=== PATIENT | female | born 1940 | race Caucasian/White ===

== ENCOUNTER 2017-06-01 14:11 | Inpatient (IN) | payer MEDICARE ==
[2017-06-01] MEDS ORDERED: Ondansetron ODT 4 MG TAB SL PRN (17:17)
[2017-06-01] MEDS ORDERED: traMADol HCl 50 MG TAB PO PRN (17:17)
[2017-06-01] MEDS ORDERED: Docusate 100 MG CAP PO PRN (17:20)
[2017-06-01] MEDS ORDERED: Milk Of Magnesia 30 ML UDCUP PO PRN (17:20)
[2017-06-01] MEDS ORDERED: Guaifenesin DM 100-10/5 ML UDCUP PO PRN (17:20)
[2017-06-01] MEDS: Simvastatin 40 MG TAB PO SCH (20:53)
[2017-06-02 05:25] LABS: ALT (SGPT) 19 U/L (8-55); AST (SGOT) 25 U/L (5-34); Albumin 2.5 g/dL (3.4-4.8); Alkaline Phosphatase 84 U/L (40-150); Anion Gap 12 mmol/L (10-20); BUN (Urea Nitrogen) 9 mg/dL (9.8-20.1); Bilirubin, Total 0.5 mg/dL (0.2-1.2); Calc. Creatinine Clearance 71 mL/min (70-130); Calcium 7.8 mg/dL (7.8-10.44); Carbon Dioxide 27 mmol/L (23-31); Chloride 107 mmol/L (98-107); Estimated GFR-MDRD 81; Globulin 2.8 g/dL (2.4-3.5); Glucose 167 mg/dL (83-110); Magnesium 1.6 mg/dL (1.6-2.6); Potassium 3.9 mmol/L (3.5-5.1); Protein, Total 5.3 g/dL (6.0-8.3); Sodium 142 mmol/L (136-145)
[2017-06-02] MEDS: metFORMIN HCl XR 500 MG TAB PO SCH (07:41)
[2017-06-02] MEDS ORDERED: Valsartan 80 MG TAB PO SCH (09:00)
[2017-06-02] MEDS: Aspirin 81 mg Enteric Coated Tablet PO SCH (09:34)
[2017-06-02] MEDS: Hydrochlorothiazide 25 MG TAB PO SCH (09:34)
[2017-06-02] MEDS: Methimazole 5 MG TAB PO SCH (09:34)
[2017-06-02] MEDS: Simvastatin 40 MG TAB PO SCH (21:08)
[2017-06-03] MEDS: metFORMIN HCl XR 500 MG TAB PO SCH (07:41)
[2017-06-03] MEDS: Hydrochlorothiazide 25 MG TAB PO SCH (08:21)
[2017-06-03] MEDS: Methimazole 5 MG TAB PO SCH (08:21)
[2017-06-03] MEDS: Aspirin 81 mg Enteric Coated Tablet PO SCH (08:22)
[2017-06-03] MEDS: Valsartan 80 MG TAB PO SCH (09:22)
[2017-06-03] MEDS: Simvastatin 40 MG TAB PO SCH (20:08)
[2017-06-04] MEDS: metFORMIN HCl XR 500 MG TAB PO SCH (07:52)
[2017-06-04] MEDS: Aspirin 81 mg Enteric Coated Tablet PO SCH (08:14)
[2017-06-04] MEDS: Hydrochlorothiazide 25 MG TAB PO SCH (08:14)
[2017-06-04] MEDS: Methimazole 5 MG TAB PO SCH (08:15)
[2017-06-04] MEDS: Valsartan 80 MG TAB PO SCH (08:15)
[2017-06-04] MEDS: Simvastatin 40 MG TAB PO SCH (20:45)
[2017-06-05] MEDS: metFORMIN HCl XR 500 MG TAB PO SCH (08:07)
[2017-06-05] MEDS: Hydrochlorothiazide 25 MG TAB PO SCH (08:10)
[2017-06-05] MEDS: Methimazole 5 MG TAB PO SCH (08:10)
[2017-06-05] MEDS: Valsartan 80 MG TAB PO SCH (08:10)
[2017-06-05] MEDS: Aspirin 81 mg Enteric Coated Tablet PO SCH (08:10)
[2017-06-05] MEDS: Simvastatin 40 MG TAB PO SCH (21:16)
[2017-06-06] MEDS: metFORMIN HCl XR 500 MG TAB PO SCH (08:07)
[2017-06-06] MEDS: Aspirin 81 mg Enteric Coated Tablet PO SCH (08:10)
[2017-06-06] MEDS: Hydrochlorothiazide 25 MG TAB PO SCH (08:10)
[2017-06-06] MEDS: Methimazole 5 MG TAB PO SCH (08:10)
[2017-06-06] MEDS: Valsartan 80 MG TAB PO SCH (08:11)
[2017-06-06] MEDS: Simvastatin 40 MG TAB PO SCH (20:49)
[2017-06-07] MEDS: metFORMIN HCl XR 500 MG TAB PO SCH (07:23)
[2017-06-07] MEDS: Aspirin 81 mg Enteric Coated Tablet PO SCH (09:10)
[2017-06-07] MEDS: Valsartan 80 MG TAB PO SCH (09:10)
[2017-06-07] MEDS: Hydrochlorothiazide 25 MG TAB PO SCH (09:10)
[2017-06-07] MEDS: Methimazole 5 MG TAB PO SCH (09:10)
[2017-06-07] MEDS ORDERED: Docusate 100 MG CAP PO PRN (12:33)
[2017-06-07] MEDS ORDERED: traMADol HCl 50 MG TAB PO PRN (12:34)
[2017-06-07] MEDS: Simvastatin 40 MG TAB PO SCH (20:11)
[2017-06-08 07:00] LABS: #Basophils 0.1 thou/uL (0.0-0.2); #Eosinphils 0.2 thou/uL (0.0-0.7); #Lymphocytes 1.3 thou/uL (1.20-3.40); #Monocytes 0.9 thou/uL (0.11-0.59); #Neutrophils 5.9 thou/uL (1.40-6.50); %Basophils 0.8 % (0.0-1.0); %Eosinophils 2.6 % (0.0-10.0); %Lymphocytes 15.3 % (21.0-51.0); %Monocytes 11.1 % (0.0-10.0); %Neutrophils 70.3 % (42.0-75.0); Hemoglobin 9.2 g/dL (12.0-16.0); Mean Corpuscular HGB CONC 32.6 g/dL (32.0-36.0); Mean Corpuscular Hemoglobin 27.7 pg (27.0-31.0); Mean Corpuscular Volume 85.1 fl (81.0-99.0); Mean Platelet Volume 6.7 fL (7.4-10.4); Platelet Count 457 thou/uL (130-400); RBC Distribution Width 13.6 % (11.5-14.5); Red Blood Cell (RBC) Count 3.33 mill/uL (4.20-5.40); White Blood Cell (WBC) Count 8.3 thou/uL (4.8-10.8)
[2017-06-08 07:46] LABS: Anion Gap 16 mmol/L (10-20); BUN (Urea Nitrogen) 15 mg/dL (9.8-20.1); Calc. Creatinine Clearance 48 mL/min (70-130); Calcium 8.5 mg/dL (7.8-10.44); Carbon Dioxide 23 mmol/L (23-31); Chloride 106 mmol/L (98-107); Estimated GFR-MDRD 68; Glucose 151 mg/dL (83-110); Potassium 3.8 mmol/L (3.5-5.1); Sodium 141 mmol/L (136-145)
[2017-06-08] MEDS: metFORMIN HCl XR 500 MG TAB PO SCH (08:23)
[2017-06-08] MEDS: Aspirin 81 mg Enteric Coated Tablet PO SCH (08:24)
[2017-06-08] MEDS: Methimazole 5 MG TAB PO SCH (08:24)
[2017-06-08] MEDS: Hydrochlorothiazide 25 MG TAB PO SCH (08:24)
[2017-06-08] MEDS: Valsartan 80 MG TAB PO SCH (08:24)
[2017-06-08] MEDS: Simvastatin 40 MG TAB PO SCH (21:24)
[2017-06-09] MEDS: Hydrochlorothiazide 25 MG TAB PO SCH (08:56)
[2017-06-09] MEDS: metFORMIN HCl XR 500 MG TAB PO SCH (08:56)
[2017-06-09] MEDS: Valsartan 80 MG TAB PO SCH (08:57)
[2017-06-09] MEDS: Aspirin 81 mg Enteric Coated Tablet PO SCH (08:57)
[2017-06-09] MEDS: Methimazole 5 MG TAB PO SCH (08:57)
[2017-06-09] MEDS: Simvastatin 40 MG TAB PO SCH (20:20)
[2017-06-10] MEDS: metFORMIN HCl XR 500 MG TAB PO SCH (08:29)
[2017-06-10] MEDS: Valsartan 80 MG TAB PO SCH (08:29)
[2017-06-10] MEDS: Hydrochlorothiazide 25 MG TAB PO SCH (08:30)
[2017-06-10] MEDS: Aspirin 81 mg Enteric Coated Tablet PO SCH (08:30)
[2017-06-10] MEDS: Methimazole 5 MG TAB PO SCH (08:30)
[2017-06-10] MEDS: Simvastatin 40 MG TAB PO SCH (20:25)
[2017-06-11 06:58] VITALS: BMI 21.2
[2017-06-11] MEDS: Hydrochlorothiazide 25 MG TAB PO SCH (08:01)
[2017-06-11] MEDS: Methimazole 5 MG TAB PO SCH (08:01)
[2017-06-11] MEDS: Valsartan 80 MG TAB PO SCH (08:01)
[2017-06-11] MEDS: metFORMIN HCl XR 500 MG TAB PO SCH (08:01)
[2017-06-11] MEDS: Aspirin 81 mg Enteric Coated Tablet PO SCH (08:02)
[2017-06-11] MEDS: Simvastatin 40 MG TAB PO SCH (20:43)
[2017-06-12] MEDS: Valsartan 80 MG TAB PO SCH (09:00)
[2017-06-12] MEDS: metFORMIN HCl XR 500 MG TAB PO SCH (09:01)
[2017-06-12] MEDS: Aspirin 81 mg Enteric Coated Tablet PO SCH (09:01)
[2017-06-12] MEDS: Methimazole 5 MG TAB PO SCH (09:01)
[2017-06-12] MEDS: Hydrochlorothiazide 25 MG TAB PO SCH (09:01)
[2017-06-12] MEDS: Simvastatin 40 MG TAB PO SCH (20:56)
[2017-06-13] MEDS: Valsartan 80 MG TAB PO SCH (09:04)
[2017-06-13] MEDS: metFORMIN HCl XR 500 MG TAB PO SCH (09:05)
[2017-06-13] MEDS: Hydrochlorothiazide 25 MG TAB PO SCH (09:05)
[2017-06-13] MEDS: Aspirin 81 mg Enteric Coated Tablet PO SCH (09:06)
[2017-06-13] MEDS: Methimazole 5 MG TAB PO SCH (09:06)
[2017-06-13] MEDS: Simvastatin 40 MG TAB PO SCH (20:17)
[2017-06-14] MEDS: metFORMIN HCl XR 500 MG TAB PO SCH (08:57)
[2017-06-14] MEDS: Methimazole 5 MG TAB PO SCH (08:58)
[2017-06-14] MEDS: Hydrochlorothiazide 25 MG TAB PO SCH (08:58)
[2017-06-14] MEDS: Valsartan 80 MG TAB PO SCH (08:58)
[2017-06-14] MEDS: Aspirin 81 mg Enteric Coated Tablet PO SCH (08:59)
[2017-06-14 13:24] VITALS: BP 134/63; TEMP 97.3
== END 2017-06-14 13:38 | disposition home or self-care (01) | DRG 947 ==
LOC: UNDOADMIN 14:11 → MADMS 14:11
PROVIDERS: ADMIT Family Medicine; ATTEND Family Medicine
DX: R53.1 Weakness (principal); J18.9 Pneumonia, unspecified organism; K56.60 Unspecified intestinal obstruction; E11.9 Type 2 diabetes mellitus without complications; D64.9 Anemia, unspecified; E05.90 Thyrotoxicosis, unspecified without thyrotoxic crisis or storm; I10 Essential (primary) hypertension; E78.5 Hyperlipidemia, unspecified; Z66 Do not resuscitate; Z85.038 Personal history of other malignant neoplasm of large intestine
CPT/HCPCS: 36415; 36416; 80048; 80053; 83735; 85025; G8978-GP-CK; G8979-GP-CI

== ENCOUNTER 2025-07-18 10:24 | Emergency (ER) | payer OTHER ==
[2025-07-18 11:18] LABS: #Basophils 0.1 thou/uL (0.0-0.2); #Eosinophils 0.8 thou/uL (0.0-0.7); #Lymphocytes 0.9 thou/uL (1.20-3.40); #Monocytes 0.5 thou/uL (0.11-0.59); #Neutrophils 6.3 thou/uL (1.40-6.50); %Basophils 1.0 % (0.0-1.0); %Eosinophils 9.5 % (0.0-10.0); %Lymphocytes 10.6 % (21.0-51.0); %Monocytes 5.8 % (0.0-10.0); %Neutrophils 73.2 % (42.0-75.0); Hematocrit 35.7 % (36.0-47.0); Hemoglobin 11.4 g/dL (12.0-16.0); Mean Corpuscular Hemoglobin 27.0 pg (27.0-31.0); Mean Corpuscular Volume 84.6 fl (78.0-98.0); Platelet Count 188 10x3/uL (130-400); Red Blood Cell (RBC) Count 4.22 mill/uL (4.20-5.40); White Blood Cell (WBC) Count 8.5 10x3/uL (4.8-10.8)
[2025-07-18 12:01] LABS: ALT (SGPT) 13 U/L (Less than 34); AST (SGOT) 20 U/L (11-34); Albumin 4.2 g/dL (3.1-4.5); Alkaline Phosphatase 90 U/L (40-110); Anion Gap 16 mmol/L (10-20); BUN (Urea Nitrogen) 19 mg/dL (9.8-20.1); Bilirubin, Total 0.4 mg/dL (0.3-1.2); Calc. Creatinine Clearance 0 mL/min (70-130); Calcium 8.6 mg/dL (7.8-10.44); Carbon Dioxide 18 mmol/L (23-31); Chloride 103 mmol/L (98-107); Globulin 2.9 g/dL (2.4-3.5); Glucose 258 mg/dL (83-110); Magnesium 1.6 mg/dL (1.6-2.6); Potassium 4.2 mmol/L (3.5-5.1); Sodium 133 mmol/L (136-145)
== END 2025-07-18 13:03 | disposition home or self-care (01) ==
LOC: MADERS 10:24
DX: L50.9 Urticaria, unspecified (principal); R53.1 Weakness; I10 Essential (primary) hypertension; E11.65 Type 2 diabetes mellitus with hyperglycemia; Z79.82 Long term (current) use of aspirin; Z79.84 Long term (current) use of oral hypoglycemic drugs; Z79.899 Other long term (current) drug therapy
CPT/HCPCS: 36415; 80053; 83735; 84443; 85025; 99284